=== PATIENT | male | born 1980 | race Caucasian/White ===

== ENCOUNTER 2017-07-24 14:39 | Emergency (ER) | payer SELFPAY ==
[2017-07-24] MEDS ORDERED: Bupivacaine 0.25% EPI 200,000* 30 ML SDV INJ ONE (15:06)
[2017-07-24 15:26] VITALS: BP 136/80
--- NOTE | 2017-07-24 16:30 | ED ---
Delio Isaacs Stephanie, scribed for Jacques Olivo MD on 07/24/17 at 1508 . Throat Pain/Nasal Congestion - HPI Summary HPI Summary: The pt is a 37 y/o M presenting to the ED with c/o dental pain that began on . He denies fever. - History of Current Complaint Chief Complaint: EDDentalPain Time Seen by Provider: 07/24/17 15:00 Hx Obtained From: Patient Onset/Duration: Gradual Onset, Lasting Days - 2, Still Present - Allergies/Home Medications Allergies/Adverse Reactions: Allergies Allergy/AdvReac Type Severity Reaction Status Date / Time No Known Allergies Allergy Verified 07/24/17 14:55 PMH/Surg Hx/FS Hx/Imm Hx Sensory History: Denies: Hx Legally Blind EENT History: Denies: Hx Deafness - Surgical History Surgery Procedure, Year, and Place: [place] teeth extraction Infectious Disease History: No Infectious Disease History: Denies: Traveled Outside the [place] in Last 30 Days - Family History Known Family History: Negative: Renal Disease - Social History Occupation: Employed Full-time Lives: Alone Alcohol Use: Occasionally Hx Substance Use: No Substance Use Type: Reports: None Hx Tobacco Use: No Smoking Status (MU): Never Smoked Tobacco Have You Smoked in the Last Year: No Review of Systems Negative: Fever Positive: Dental Pain Negative: Slurred Speech All Other Systems Reviewed And Are Negative: Yes Physical Exam - Summary Physical Exam Summary: Appearance: Well appearing, no pain distress Skin: warm, dry, reflects adequate perfusion Head/face: normal Dental:2nd molar with erosion on R upper, no real gingival swelling. Partially erupted 3ed molar in R upper area of mouth. Eyes: EOMI, SAMRA ENT: normal Neck: supple, non-tender Respiratory: CTA, breath sounds present Cardiovascular: RRR, pulses symmetrical Abdomen: non-tender, soft Bowel Sounds: present Musculoskeletal: normal, strength/ROM intact Neuro: normal, sensory motor intact, A&Ox3 Triage Information Reviewed: Yes Vital Signs On Initial Exam: Initial Vitals Temp Pulse Resp BP Pulse Ox 97.5 F 56 14 136/82 92 07/24/17 14:53 07/24/17 14:53 07/24/17 14:53 07/24/17 14:53 07/24/17 14:53 Vital Signs Reviewed: Yes Procedures - Procedure Summary Procedure Summary: Dental nerve block: Reason: Pain, right upper molar Description: Patient has erosion/dental Caryl of the right upper second molar with pain. A supraperiosteal nerve block was performed with a total of 1.5 cc of 0.25% bupivacaine with epinephrine. The medial aspect of the tooth was blocked via palatine nerve block with a total of 0.5 cc of the same 0.25% bupivacaine with epinephrine. This resolved his discomfort. He had no complications. Diagnostics - Vital Signs Vital Signs Temp Pulse Resp BP Pulse Ox 07/24/17 14:53 97.5 F 56 14 136/82 92 - Laboratory Lab Statement: Any lab studies that have been ordered have been reviewed, and results considered in the medical decision making process. EENT Course/Dx - Course Course Of Treatment: Dental caries with erosion of the molar and pain. Pain relieved with dental block. Started antibiotics. Referred to dental. - Diagnoses Provider Diagnoses: Pain, dental, Dental caries Discharge - Sign-Out/Discharge Documenting (check all that apply): Discharge/Admit/Transfer - Discharge - Discharge Plan Condition: Stable Disposition: HOME Prescriptions: Naproxen [Naproxen 500 mg tab] 500 mg PO BID PRN #12 tablet.dr PRN Reason: Pain Penicillin VK 500 MG TAB(NF) [Penicillin VK 500 mg Tab] 500 mg PO QID #40 tab Patient Education Materials: Toothache (ED) Referrals: [facility] [Outside] Additional Instructions: Call your dentist today to schedule follow-up. Return with fever, uncontrolled pain, worse or other concerns. - Billing Disposition and Condition Condition: STABLE Disposition: Home The documentation as recorded by the Delio coles Stephanie accurately reflects the service I personally performed and the decisions made by , Jacques Olivo MD.
== END 2017-07-24 15:25 | disposition home or self-care (01) ==
LOC: ED 14:39
DX: K02.9 Dental caries, unspecified (principal)
CPT/HCPCS: 99282